=== PATIENT | female | born 1970 | race African-American/Black ===

== ENCOUNTER 2018-09-27 19:59 | Emergency (ER) | payer BC ==
[2018-09-27] MEDS ORDERED: LORazepam TAB(*) 1 MG PO ONE (20:13)
[2018-09-27] MEDS ORDERED: Al Hydrox/Mg Hydrox/Simet LIQ* 30 ML UDC PO ONE (20:14)
[2018-09-27] MEDS ORDERED: Lidocaine 2% VISCOUS* 15 ML UDC PO ONE (20:14)
--- NOTE | 2018-09-27 20:34 | ED ---
HPI Chest Pain - HPI Summary HPI Summary: Pt is a 47 y/o F presenting to the ED brought in by EMS for chest pain first onset around 1700, described as squeezing, pressure, and sometimes sharp. The severity of the pain waxes and wanes, and she reports associated nausea and heart palpitations. She denies dizziness, lightheadedness, diaphoresis, and SOB. She is a former smoker who quit smoking about 6 years ago, and is currently not on any medications. She has had a cardiac catheter and an echocardiogram in the past, and both were normal. - History of Current Complaint Chief Complaint: EDChestPainROMI Time Seen by Provider: 09/27/18 20:05 Hx Obtained From: Patient Onset/Duration: Started Hours Ago, Still Present Timing: Constant, Lasting Hours Initial Severity: Moderate Current Severity: Severe Pain Intensity: 8 Pain Scale Used: 0-10 Numeric Chest Pain Location: Diffuse Chest Pain Radiates: No Character: Pressure/Squeezing, Sharp/Stabbing Aggravating Factor(s): Nothing Alleviating Factor(s): Nothing Associated Signs and Symptoms: Positive: Chest Pain, Palpitations. Negative: Dizziness, Shortness of Breath, Lightheadedness, Diaphoresis - Allergy/Home Medications Allergies/Adverse Reactions: Allergies Allergy/AdvReac Type Severity Reaction Status Date / Time No Known Allergies Allergy Verified 09/27/18 20:16 Home Medications: Home Medications NK [No Home Medications Reported] 09/27/18 [History Confirmed 09/27/18] PMH/Surg Hx/FS Hx/Imm Hx Previously Healthy: Yes Endocrine/Hematology History: Denies: Hx Diabetes Cardiovascular History: Denies: Hx Hypertension Infectious Disease History: No Infectious Disease History: Denies: Traveled Outside the [place] in Last 30 Days - Family History Known Family History: Negative: Renal Disease - Social History Alcohol Use: None Hx Substance Use: No Substance Use Type: Reports: None Hx Tobacco Use: Yes Smoking Status (MU): Former Smoker Review of Systems Negative: Skin Diaphoresis Positive: Palpitations, Chest Pain Negative: Shortness Of Breath Neurological: Negative - dizziness, lightheadedness All Other Systems Reviewed And Are Negative: Yes Physical Exam - Summary Physical Exam Summary: Appearance: Well-appearing woman, Well-nourished, lying in bed comfortably Skin: Warm, dry, no obvious rash Eyes: sclera anicteric, no conjunctival pallor ENT: mucous membranes moist, pharynx appears normal Neck: Supple, nontender Respiratory: Clear to auscultation, no signs of respiratory distress Cardiovascular: Normal S1, S2. No murmurs. Normal distal pulses in tibial and radial bilaterally. Abdomen: Soft, nontender, normal active bowel sounds present Musculoskeletal: Normal, Strength/ROM Intact Neurological: A&Ox3, awake and alert, mentation is normal, speech is fluent and appropriate Psychiatric: affect is anxious Triage Information Reviewed: Yes Vital Signs On Initial Exam: Initial Vitals Temp Pulse Resp BP Pulse Ox 99.5 F 83 17 135/81 99 09/27/18 20:07 09/27/18 20:07 09/27/18 20:07 09/27/18 20:07 09/27/18 20:07 Vital Signs Reviewed: Yes Diagnostics - Vital Signs Vital Signs Temp Pulse Resp BP Pulse Ox 09/27/18 20:07 99.5 F 83 17 135/81 99 - Laboratory Result Diagrams: 09/27/18 20:30 09/27/18 20:30 Lab Statement: Any lab studies that have been ordered have been reviewed, and results considered in the medical decision making process. - EKG 2013 Cardiac Rate: NL - 75bpm EKG Rhythm: Sinus Rhythm ST Segment: Normal Ectopy: None Summary of EKG Findings: EKG at 2013 shows NSR at 75bpm with no STEMI. Chest Pain Course/Dx - Course Course Of Treatment: Pt is a 47 y/o F presenting to the ED brought in by EMS for chest pain first onset around 1700, described as squeezing, pressure, and sometimes sharp. The severity of the pain waxes and wanes, and she reports associated nausea and heart palpitations. She denies dizziness, lightheadedness , diaphoresis, and SOB. In the ED course, pt was given a GI cocktail in the ED consisting of Maalox 30ml, 15ml Lidocaine, and Lorazepam 1mg. EKG at 2013 shows NSR at 75bpm with no STEMI. Pts hematology shows Hgb of 7.5, Hct of 25, MCV of 57, MCH of 17, MCHC of 20, and RDW of 22. Both of the pt's two troponin results were negative at 0.00. The pt is feeling better as of 2304 and will be sent home with a dx of chest pain and anemia. She is stable and agreeable with this plan. - Diagnoses Provider Diagnoses: Chest pain, Anemia Discharge - Sign-Out/Discharge Documenting (check all that apply): Patient Departure Patient Received Moderate/Deep Sedation with Procedure: No - Discharge Plan Condition: Improved Disposition: HOME Patient Education Materials: Chest Pain (ED), Iron Deficiency Anemia (ED) Referrals: Parth Gallegos MD [Medical Doctor] - Additional Instructions: Your workup here tonight did not show any signs of a heart problem, though you do have fairly significant anemia. Call Dr. Gallegos's office on Sunday to make an appt so you can get established with a local blood doctor. It would be helpful as well if you could contact your doctor in [place] to have some records sent out to Dr. Gallegos's office. - Billing Disposition and Condition Condition: IMPROVED Disposition: Home - Attestation Statements Document Initiated by Luz Maria: Yes Documenting Scribe: Jerica Miramontes Provider For Whom Luz Maria is Documenting (Include Credential): Sánchez Castillo MD. Scribe Attestation: Jerica Brand, selinaed for Sánchez Castillo MD. on 10/01/18 at 2024. Scribe Documentation Reviewed: Yes Provider Attestation: The documentation as recorded by the Jerica awan accurately reflects the service I personally performed and the decisions made by me, Sánchez Castillo MD. Status of Scribe Document: Viewed
[2018-09-27 20:49] LABS: INR 0.98 (0.82-1.09)
[2018-09-27 20:50] LABS: Hematocrit 25 % (35-47); Hemoglobin 7.5 g/dL (12.0-16.0); Mean Corpuscular HGB Conc 30 g/dL (31-36); Mean Corpuscular Hemoglobin 17 pg (27-31); Mean Corpuscular Volume 57 fL (80-97); Mean Platelet Volume 9.1 fL (7.4-10.4); Platelet Count 207 10^3/uL (150-450); Red Blood Count 4.47 10^6 /uL (3.70-4.87); Red Cell Distribution Width 22 % (10.5-15); White Blood Count 6.9 10^3/uL (3.5-10.8)
[2018-09-27 21:06] LABS: Albumin 3.8 g/dL (3.2-5.2); Albumin/Globulin Ratio 1.3 (1-3); BUN/Creatinine Ratio 15.5 (8-20); Calcium 8.9 mg/dL (8.6-10.3); EGFR African American 106.3 (>60); EGFR Non-African American 87.9 (>60); Potassium 3.9 mmol/L (3.5-5.0); Total Bilirubin 0.3 mg/dL (0.2-1.0); Total Protein 6.8 g/dL (6.4-8.9)
[2018-09-27 21:18] LABS: ABS Basophils 0.1 10^3/ul (0-0.2); ABS Eosinophils 0.1 10^3/ul (0-0.6); ABS Lymphocytes 1.9 10^3/ul (1.0-4.8); ABS Monocytes 0.7 10^3/ul (0-0.8); Lymphocyte % 27.9 %; Nucleated Red Blood Cells % 0.1
[2018-09-27 21:19] LABS: Microcytosis 2+
[2018-09-27 23:34] VITALS: BP 123/74
== END 2018-09-27 23:32 | disposition home or self-care (01) ==
LOC: ED 19:59
DX: R07.9 Chest pain, unspecified (principal); R00.2 Palpitations; Z87.891 Personal history of nicotine dependence; D64.9 Anemia, unspecified
CPT/HCPCS: 36415; 80053; 84484; 85025; 85060; 85610; 93005; 99283; A9270-GY

== ENCOUNTER 2018-11-07 10:54 | Emergency (ER) | payer BC ==
[2018-11-07] MEDS ORDERED: Aspirin 81 mg CHEW TAB* 81 MG TAB.CHEW PO ONE (11:15)
--- NOTE | 2018-11-07 11:31 | ED ---
HPI Chest Pain - HPI Summary HPI Summary: The patient is a 47 y/o F presenting to [facility] with a chief complaint of intermittent episodes of mid-sternal CP that radiates to the LUE over the last week and a half. Currently, the pain is rated 3/10 in severity. She reports that the dull and aching pain is not associated with exertion. She additionally c/o nausea without vomiting. She denies fever, cough, SOB, palpitations, dizziness, diarrhea, and constipation. She notes that she's had similar symptoms before, and has dx of costochondritis. No hx of DM, HTN, or HLD, but has FHx of DM, HTN, and HLD. No surgical hx. Nonsmoker, no EtOH, no substance use. - History of Current Complaint Chief Complaint: EDChestPainROMI Time Seen by Provider: 11/07/18 11:13 Hx Obtained From: Patient Onset/Duration: Started Days Ago - a week and a half, Still Present Timing: Intermittent, Lasting Days Initial Severity: Moderate Current Severity: Mild Pain Intensity: 3 Pain Scale Used: 0-10 Numeric Chest Pain Location: Mid Sternal Chest Pain Radiates: Yes Chest Pain Radiates To:: Arm - left Character: Dull/Aching Aggravating Factor(s): Nothing - exertion does not worsen the pain Alleviating Factor(s): Nothing Associated Signs and Symptoms: Positive: Chest Pain, Nausea, Other: - NEGATIVE: diarrhea, constipation. Negative: Dizziness, Shortness of Breath, Fever, Palpitations, Cough, Vomiting - Allergy/Home Medications Allergies/Adverse Reactions: Allergies Allergy/AdvReac Type Severity Reaction Status Date / Time No Known Allergies Allergy Verified 11/07/18 11:05 PMH/Surg Hx/FS Hx/Imm Hx Endocrine/Hematology History: Denies: Hx Diabetes Cardiovascular History: Denies: Hx Hypercholesterolemia, Hx Hypertension - Surgical History Surgical History: None Surgery Procedure, Year, and Place: none Infectious Disease History: No Infectious Disease History: Denies: Traveled Outside the [place] in Last 30 Days - Family History Known Family History: Positive: Hypertension, Diabetes, Other - dyslipidemia Negative: Renal Disease - Social History Alcohol Use: None Hx Substance Use: No Substance Use Type: Reports: None Hx Tobacco Use: Yes Smoking Status (MU): Former Smoker Do You Chew or Dip Tobacco: No Have You Chewed or Dipped Tobacco in the LAST YEAR: No Have You Smoked in the Last Year: No Review of Systems Negative: Fever Positive: Chest Pain - mid-sternal, radiating to left arm. Negative: Palpitations Negative: Shortness Of Breath, Cough Positive: Nausea, Other - NEGATIVE: constipation. Negative: Vomiting, Diarrhea Neurological: Other - NEGATIVE: dizziness All Other Systems Reviewed And Are Negative: Yes Physical Exam - Summary Physical Exam Summary: VITAL SIGNS: Reviewed. GENERAL: Patient is a well-developed and nourished female who is lying comfortable in the stretcher. Patient is not in any acute respiratory distress. HEAD AND FACE: No signs of trauma. No ecchymosis, hematomas or skull depressions. No sinus tenderness. EYES: PERRLA, EOMI x 2, No injected conjunctiva, no nystagmus. EARS: Hearing grossly intact. Ear canals and tympanic membranes are within normal limits. MOUTH: Oropharynx within normal limits. NECK: Supple, trachea is midline, no adenopathy, no JVD, no carotid bruit, no c- spine tenderness, neck with full ROM. CHEST: Symmetric. Reproducible chest pain on the left side. LUNGS: Clear to auscultation bilaterally. No wheezing or crackles. CVS: Regular rate and rhythm, S1 and S2 present, no murmurs or gallops appreciated. ABDOMEN: Soft, non-tender. No signs of distention. No rebound, no guarding, and no masses palpated. Bowel sounds are normal. EXTREMITIES: FROM in all major joints, no edema, no cyanosis or clubbing. NEURO: Alert and oriented x 3. No acute neurological deficits. Speech is normal and follows commands. SKIN: Dry and warm. Triage Information Reviewed: Yes Vital Signs On Initial Exam: Initial Vitals Temp Pulse Resp BP Pulse Ox 98.4 F 68 18 147/75 100 11/07/18 11:03 11/07/18 11:03 11/07/18 11:03 11/07/18 11:03 11/07/18 11:03 Vital Signs Reviewed: Yes Diagnostics - Vital Signs Vital Signs Temp Pulse Resp BP Pulse Ox 11/07/18 11:03 98.4 F 68 18 147/75 100 - Laboratory Result Diagrams: 11/07/18 11:45 11/07/18 11:45 Lab Statement: Any lab studies that have been ordered have been reviewed, and results considered in the medical decision making process. - Radiology CXR Radiology Interpretation Completed By: Radiologist Summary of Radiographic Findings: The cardiac silhouette is at the upper limits of normal in size for portable technique. No active cardiopulmonary disease. ED physician has reviewed this report. - EKG 1058 Cardiac Rate: NL - 68 BPM EKG Rhythm: Sinus Rhythm EKG Comparison: No Significant Change - Similar to EKG taken on 09/27/2018. Summary of EKG Findings: Nml axis. No ST elevations. Re-Evaluation - Re-Evaluation First Eval Re-Evaluation Time: 13:09 Comment: I disucssed results thus far with the patient. Second Eval Re-Evaluation Time: 13:48 Comment: I discussed further findings with the patient. Third Eval Re-Evaluation Time: 15:33 Change: Improved Comment: I discussed results and discharge home with the patient. Chest Pain Course/Dx - Course Assessment/Plan: The patient is a 47 y/o F presenting to [facility] with a chief complaint of intermittent episodes of mid-sternal CP that radiates to the LUE over the last week and a half. Currently, the pain is rated 3/10 in severity. She reports that the dull and aching pain is not associated with exertion. She additionally c/o nausea without vomiting. She denies fever, cough, SOB, palpitations, dizziness, diarrhea, and constipation. She notes that she's had similar symptoms before, and has dx of costochondritis. No hx of DM, HTN, or HLD , but has FHx of DM, HTN, and HLD. No surgical hx. Nonsmoker, no EtOH, no substance use. No past medical history. EKG is a normal sinus rhythm at [address] elevations with normal axis. EKG is similar to previous EKG done on 09/27/18. Chest X-ray Impression: The cardiac silhouette is at the upper limits of normal in size for portable technique. Blood work without any significant abnormalities except for hemoglobin of 7.9 and hematocrit of 27. The patient is at her baseline since the patient has a history of chronic iron deficiency anemia. Two troponins four hours apart are 0.00. The heart to score is equal to 1, therefore, there is no suspicion for an acute coronary syndrome. The patient is not hypoxic or tachycardic, therefore, there is no suspicion for PE. I discussed all the findings and test results with the patient. Patient was instructed to return to the emergency room immediately if any of the symptoms return or worsen. Plan of care was discussed with the patient, and she understands and agrees. All questions were answered at patient satisfaction. There were no further complaints or concerns. Lung exam before discharge: CTA B/ L. Good air exchange. No wheezing or crackles heard. CVS: S1 and S2 present. No murmurs appreciated. Patient is alert and oriented x 3. Patient is hemodynamically stable. Patient will be discharged home with follow up PCP in the next 2-3 days. - Diagnoses Provider Diagnoses: Atypical chest pain Discharge - Sign-Out/Discharge Documenting (check all that apply): Patient Departure - Patient will be discharged home. Patient Received Moderate/Deep Sedation with Procedure: No - Discharge Plan Condition: Stable Disposition: HOME Patient Education Materials: Chest Pain (DC) Referrals: [facility] [place] PHYSICIAN REFERRAL [Outside] - 3 Days Additional Instructions: Follow up with your primary care provider in 2-3 days. RETURN TO THE EMERGENCY DEPARTMENT FOR ANY NEW OR WORSENING SYMPTOMS. - Billing Disposition and Condition Condition: STABLE Disposition: Home - Attestation Statements Document Initiated by Luz Maria: Yes Documenting Scribe: Filomena Hancock Provider For Whom Luz Maria is Documenting (Include Credential): Dr. Tang Ramesh MD Scribe Attestation: Filomena Brand scribed for Dr. Tang Ramesh MD on 11/07/18 at 1915. Scribe Documentation Reviewed: Yes Provider Attestation: The documentation as recorded by the Filomena awan accurately reflects the service I personally performed and the decisions made by me, Dr. Tang Ramesh MD Status of Scribe Document: Ready
[2018-11-07 11:55] LABS: ABS Eosinophils 0.1 10^3/ul (0-0.6); ABS Lymphocytes 1.4 10^3/ul (1.0-4.8); ABS Monocytes 0.5 10^3/ul (0-0.8); ABS Neutrophils 3.6 10^3/ul (1.5-7.7); Eosinophil % 1.2 %; Hematocrit 27 % (35-47); Hemoglobin 7.9 g/dL (12.0-16.0); Lymphocyte % 25.5 %; Mean Corpuscular HGB Conc 30 g/dL (31-36); Mean Corpuscular Hemoglobin 17 pg (27-31); Mean Corpuscular Volume 57 fL (80-97); Mean Platelet Volume 8.4 fL (7.4-10.4); Platelet Count 202 10^3/uL (150-450); Red Blood Count 4.66 10^6 /uL (3.70-4.87); Red Cell Distribution Width 22 % (10-15); White Blood Count 5.6 10^3/uL (3.5-10.8)
[2018-11-07 12:09] LABS: Albumin 3.7 g/dL (3.2-5.2); Albumin/Globulin Ratio 1.2 (1-3); BUN/Creatinine Ratio 15.3 (8-20); Calcium 8.9 mg/dL (8.6-10.3); EGFR African American 104.6 (>60); EGFR Non-African American 86.5 (>60); Globulin 3.2 g/dL (2-4); Potassium 3.9 mmol/L (3.5-5.0); Total Bilirubin 0.5 mg/dL (0.2-1.0); Total Protein 6.9 g/dL (6.4-8.9)
[2018-11-07 12:36] LABS: TSH (Thyroid Stimulating Horm) 2.27 mcIU/mL (0.34-5.60)
[2018-11-07 16:07] VITALS: BP 137/88
== END 2018-11-07 16:06 | disposition home or self-care (01) ==
LOC: ED 10:54
DX: R07.89 Other chest pain (principal); R11.0 Nausea; D50.9 Iron deficiency anemia, unspecified; Z87.891 Personal history of nicotine dependence
CPT/HCPCS: 36415; 71045; 80053; 82550; 82553; 83605; 83880; 84443; 84484; 85025; 85610; 85730; 93005; 99283; A9270-GY

== ENCOUNTER 2019-01-23 08:55 | Emergency (ER) | payer SELFPAY ==
--- NOTE | 2019-01-23 09:26 | ED ---
HPI Chest Pain - HPI Summary HPI Summary: Patient is a 48-year-old female who presents emergency department for left leg pain times one week. Patient denies any falls or injuries. Patient also notes she's been having ongoing palpitations as well as some chest pressure today. Patient was concerned for possible DVT. Patient has been seen in the ER if he times over the last few months for similar complaints of chest pain and palpitations. She notes she has new to the area and does not have a family doctor yet. Patient also has a history of iron deficiency anemia and was referred to hematology at her last visit that she has not followed up or made an appointment. Otherwise hx of obesity, denies HTN, HLD, or smoking. Notes strong family hx of CAD. Pt .reportedly has had a normal stress test and cath in the past. Denies drug or ETOH use. Patient otherwise denies fever, chills, cough, shortness of breath. Symptoms are moderate in severity. No current modifying factors. - History of Current Complaint Chief Complaint: EDChestPainROMI Time Seen by Provider: 01/23/19 09:23 Hx Obtained From: Patient - Allergy/Home Medications Allergies/Adverse Reactions: Allergies Allergy/AdvReac Type Severity Reaction Status Date / Time No Known Allergies Allergy Verified 01/23/19 09:05 PMH/Surg Hx/FS Hx/Imm Hx Previously Healthy: Yes Endocrine/Hematology History: Denies: Hx Diabetes Cardiovascular History: Denies: Hx Hypercholesterolemia, Hx Hypertension - Surgical History Surgery Procedure, Year, and Place: none Infectious Disease History: No Infectious Disease History: Denies: Traveled Outside the [place] in Last 30 Days - Family History Known Family History: Positive: Hypertension, Diabetes, Other - dyslipidemia Negative: Renal Disease - Social History Occupation: Unemployed Lives: With Family Alcohol Use: None Hx Substance Use: No Substance Use Type: Reports: None Hx Tobacco Use: Yes Smoking Status (MU): Former Smoker Have You Smoked in the Last Year: No Review of Systems Constitutional: Negative Negative: Fever, Chills Positive: Palpitations, Chest Pain Respiratory: Negative Negative: Shortness Of Breath Gastrointestinal: Negative Positive: Other - left lower leg pain. Skin: Negative Neurological: Negative Negative: Weakness, Paresthesia, Numbness All Other Systems Reviewed And Are Negative: Yes Physical Exam Triage Information Reviewed: Yes Vital Signs On Initial Exam: Initial Vitals Pulse Resp Pulse Ox 67 18 100 01/23/19 09:12 01/23/19 09:12 01/23/19 09:12 Vital Signs Reviewed: Yes Appearance: Positive: Well-Appearing - Pt. sitting up in bed in NAD. Skin: Positive: Warm, Dry Head/Face: Positive: Normal Head/Face Inspection Eyes: Positive: Normal, EOMI Neck: Positive: Supple Respiratory/Lung Sounds: Positive: Clear to Auscultation, Breath Sounds Present. Negative: Rales, Rhonchi, Wheezes Cardiovascular: Positive: Normal, RRR Abdomen Description: Positive: Nontender, Soft Musculoskeletal: Positive: Other - Pain to palpation of left calf. Good pedal pulse. Neurological: Positive: Normal, CN Intact II-III Psychiatric: Positive: Affect/Mood Appropriate Diagnostics - Vital Signs Vital Signs Pulse Resp Pulse Ox 01/23/19 09:12 67 18 100 - Laboratory Result Diagrams: 01/23/19 09:21 01/23/19 09:21 Lab Statement: Any lab studies that have been ordered have been reviewed, and results considered in the medical decision making process. Chest Pain Course/Dx - Course Course Of Treatment: Pt. presenting with complaints of CP, palpitations and leg pain. She is afebrile with stable VS. ECG done at 0900 shows a sinus rhythm of 70bpm, normal axis, no ST elevatio nor depression, similar to prior tracing. H and H 7.0 and 24. Mag 1.8. Negative trop x 2. US negative for DVT. CXR negative for acute findings per radiology. Results discussed. Discussed H and H with pt. She denies sxs of dizziness/lightheadedness, exertional CP, or SOB. HEART score is 2 which is low risk. Strongly advised pt. she needs to f.u with hematology for further evaluation and tx of anemia. Will also have pt. f.u with the [facility]. To return to er if sxs change or worsen. Pt. understands and agrees with plan. - Chest Pain Differential Diagnosis/HQI/PQRI: Acute UT, ACS, Chest Wall, Lower Respiratory Infection - Diagnoses Provider Diagnoses: Palpitations, Anemia Discharge ED - Sign-Out/Discharge Documenting (check all that apply): Patient Departure Patient Received Moderate/Deep Sedation with Procedure: No - Discharge Plan Condition: Good Disposition: HOME Patient Education Materials: Chest Pain (ED), Anemia (ED) Referrals: [facility] [Outside] Kelly,Marcia, MD [Medical Doctor] - Additional Instructions: Call the hematology office today to schedule a close follow up appointment Also schedule a follow up appointment with the [facility] for further evaluation of chest pain Return to ER if symptoms change or worsen - Billing Disposition and Condition Condition: GOOD Disposition: Home
[2019-01-23 09:38] LABS: ABS Basophils 0.1 10^3/ul (0-0.2); ABS Eosinophils 0.1 10^3/ul (0-0.6); ABS Lymphocytes 1.4 10^3/ul (1.0-4.8); ABS Monocytes 0.5 10^3/ul (0-0.8); ABS Neutrophils 3.6 10^3/ul (1.5-7.7); Hematocrit 24 % (35-47); Lymphocyte % 25.3 %; Mean Corpuscular HGB Conc 29 g/dL (31-36); Mean Corpuscular Hemoglobin 16 pg (27-31); Mean Corpuscular Volume 56 fL (80-97); Mean Platelet Volume 8.4 fL (7.4-10.4); Nucleated Red Blood Cells % 0.1; Platelet Count 245 10^3/uL (150-450); Red Blood Count 4.31 10^6 /uL (3.70-4.87); Red Cell Distribution Width 21 % (10-15); White Blood Count 5.7 10^3/uL (3.5-10.8)
[2019-01-23 10:08] LABS: Activated Partial Thrombo Time 31.7 seconds (26.0-38.0); INR 1.03 (0.82-1.09)
[2019-01-23 11:01] LABS: Calcium 9.3 mg/dL (8.6-10.3); Total Bilirubin 0.4 mg/dL (0.2-1.0)
[2019-01-23 11:07] LABS: Albumin/Globulin Ratio 1.3 (1-3); BUN/Creatinine Ratio 13.3 (8-20); EGFR African American 99.4 (>60); EGFR Non-African American 82.1 (>60)
[2019-01-23 11:39] LABS: Magnesium 1.8 mg/dL (1.9-2.7)
[2019-01-23 12:03] LABS: TSH (Thyroid Stimulating Horm) 4.01 mcIU/mL (0.34-5.60)
[2019-01-23 12:22] VITALS: BP 134/86
== END 2019-01-23 12:20 | disposition home or self-care (01) ==
LOC: ED 08:55
DX: R00.2 Palpitations (principal); D64.9 Anemia, unspecified; Z87.891 Personal history of nicotine dependence
CPT/HCPCS: 36415; 71045; 80053; 83735; 84443; 84484; 85025; 85610; 85730; 93005; 99284

== ENCOUNTER 2020-08-11 15:18 | Observation (INO) ==
[2020-08-11] MEDS ORDERED: NS 0.9% 1000 ml BAG 1,000 ML IV ONE (15:38)
[2020-08-11] MEDS ORDERED: Ondansetron 4 mg VIAL 2 MG/ML 2 ml VIAL IV ONE (15:39)
[2020-08-11] MEDS ORDERED: Morphine 4 MG/ML VIAL (1 ml) IV ONE (15:39)
[2020-08-11 16:15] LABS: Troponin I 0.01 ng/mL (<0.03)
[2020-08-11 16:17] LABS: Activated Partial Thrombo Time 27.3 seconds (26.0-38.0); INR 1.1 (0.82-1.09)
[2020-08-11 16:26] LABS: ABS Eosinophils 0.1 10^3/ul (0-0.6); ABS Lymphocytes 1.2 10^3/ul (1.0-4.8); ABS Neutrophils 3.8 10^3/ul (1.5-7.7); Eosinophil % 1.6 %; Hematocrit 33 % (35-47); Hemoglobin 10.1 g/dL (12.0-16.0); Lymphocyte % 19.7 %; Mean Corpuscular HGB Conc 31 g/dL (31-36); Mean Corpuscular Hemoglobin 21 pg (27-31); Mean Corpuscular Volume 69 fL (80-97); Mean Platelet Volume 9.3 fL (7.4-10.4); Nucleated Red Blood Cells % 0.1; Platelet Count 174 10^3/uL (150-450); Red Blood Count 4.76 10^6 /uL (3.70-4.87); White Blood Count 6.1 10^3/uL (3.5-10.8)
[2020-08-11 16:47] LABS: BUN/Creatinine Ratio 11.7 (8-20); Potassium 3.7 mmol/L (3.5-5.0)
[2020-08-11 16:48] LABS: Albumin 3.8 g/dL (3.2-5.2); Albumin/Globulin Ratio 1.2 (1-3); Calcium 8.7 mg/dL (8.6-10.3); EGFR Non-African American 79.3 (>60); Globulin 3.1 g/dL (2-4); Total Bilirubin 0.3 mg/dL (0.2-1.0); Total Protein 6.9 g/dL (6.4-8.9)
[2020-08-11 16:58] LABS: Red Cell Distribution Width 30 % (10-15)
[2020-08-11] MEDS: Iohexol 350 (CONTRAST) 500 ML MDV IV ONE ×2 (17:11→18:05)
[2020-08-11 17:35] LABS: Urine Appearance Turbid; Urine Bilirubin Negative (Negative); Urine Blood 2+ (Negative); Urine Color Amber; Urine Glucose Negative (Negative); Urine Ketones Negative (Negative); Urine Nitrite Positive (Negative); Urine Protein 2+(100 mg/dL) (Negative); Urine Urobilinogen Negative (Negative)
[2020-08-11 17:50] LABS: Urine Bacteria 2+ (Absent); Urine Red Blood Cell 3+(>10/hpf) (Absent); Urine White Blood Cell Trace(0-5/hpf) (Absent)
[2020-08-11] MEDS ORDERED: cefTRIAXone 1 gm/50 mL NS BAG 1 GM/50 ML BAG IV ONE (18:52)
[2020-08-11] MEDS ORDERED: Al Hydrox/Mg Hydrox/Simet LIQ 30 ML UDC PO PRN (20:25)
[2020-08-11] MEDS ORDERED: Ondansetron 4 mg VIAL 2 MG/ML 2 ml VIAL IV PRN (20:39)
[2020-08-11] MEDS ORDERED: Enoxaparin 40 MG/0.4 ML SYR SUBCUT SCH (21:00)
[2020-08-12] MEDS ORDERED: NS 0.9% 500 ml BAG 500 ML IV ONE (00:10)
[2020-08-12 06:14] LABS: ABS Eosinophils 0.1 10^3/ul (0-0.6); ABS Lymphocytes 1.5 10^3/ul (1.0-4.8); ABS Monocytes 0.6 10^3/ul (0-0.8); ABS Neutrophils 2.7 10^3/ul (1.5-7.7); Eosinophil % 1.5 %; Hematocrit 31 % (35-47); Hemoglobin 9.9 g/dL (12.0-16.0); Lymphocyte % 31.1 %; Mean Corpuscular HGB Conc 32 g/dL (31-36); Mean Corpuscular Hemoglobin 22 pg (27-31); Mean Corpuscular Volume 68 fL (80-97); Mean Platelet Volume 9.1 fL (7.4-10.4); Nucleated Red Blood Cells % 0.1; Platelet Count 170 10^3/uL (150-450); Red Blood Count 4.58 10^6 /uL (3.70-4.87); Red Cell Distribution Width 30 % (10-15); White Blood Count 4.9 10^3/uL (3.5-10.8)
[2020-08-12 06:44] LABS: % Iron Saturation 6 % (15-55); Iron 25 ug/dL (50-212); Total Iron Binding Capacity 403 mcg/dL (250-450); Transferrin 288 mg/dL (203-362); Unsaturated Iron Binding < 388 ug/dL
[2020-08-12 07:05] LABS: Ferritin 7.5 ng/mL (11-307)
[2020-08-12 13:50] VITALS: BP 139/86
[2020-08-12 14:40] LABS: TSH Ultra Thyroid Stim Horm 4.79 mcIU/mL (0.34-5.60)
[2020-08-12 16:50] LABS: Cholesterol 115 mg/dL; HDL Cholesterol 31.9 mg/dL; LDL Cholesterol 70 mg/dL; Triglycerides 66 mg/dL
[2020-08-12] MEDS ORDERED: cefTRIAXone 1 gm/50 mL NS BAG 1 GM/50 ML BAG IVPB SCH (21:00)
== END 2020-08-12 15:55 | disposition home or self-care (01) ==
LOC: ED 15:18 → MEDTELE 15:18
PROVIDERS: ADMIT Internal Medicine; ATTEND Student in an Organized Health Care Education/Training Program

== ENCOUNTER 2024-04-22 14:47 | Observation (INO) ==
[2024-04-22 15:26] LABS: ABS Basophils 0.1 10^3/uL (0.0-0.1); ABS Eosinophils 0.1 10^3/uL (0.0-0.5); ABS Lymphocytes 2.1 10^3/uL (1.0-4.8); ABS Monocytes 0.8 10^3/uL (0.0-0.9); ABS Neutrophils 4.2 10^3/uL (1.5-7.6); ABS Nucleated RBC 0.02 10^3/ul; Hematocrit 47.6 % (35-45); Hemoglobin 16.2 g/dL (11.5-14.3); Lymphocyte % 29.8 %; Mean Corpuscular Hemoglobin 28.5 pg (27-33); Mean Corpuscular Volume 83.8 fL (80-97); Nucleated Red Blood Cells % 0.3 %/100WBC (0.0-0.8); Platelet Count 250 10^3/uL (150-450); Red Blood Count 5.68 10^6/uL (3.63-4.92); Red Cell Distribution Width 15.6 % (12-17); White Blood Count 7.2 10^3/uL (3.8-11.8)
[2024-04-22 15:45] LABS: Activated Partial Thrombo Time 31.9 seconds (26.0-38.0); INR 1.06 (0.85-1.14)
[2024-04-22 16:05] LABS: Albumin 4.6 g/dL (3.2-5.2); Albumin/Globulin Ratio 1.3 (1-3); Calcium 10.5 mg/dL (8.6-10.3); Creatinine, Serum 1.05 mg/dL (0.51-0.95); Direct Bilirubin 0.1 mg/dL (0.03-0.18); Globulin 3.6 g/dL (2-4); HDL Cholesterol 44.6 mg/dL; Indirect Bilirubin 0.8 mg/dL (0.3-1.0); Potassium 3.5 mmol/L (3.5-5.0); Total Bilirubin 0.9 mg/dL (0.2-1.0); Total Protein 8.2 g/dL (6.4-8.9); eGFR CKD-EPI 63.1 (>60)
[2024-04-22] MEDS ORDERED: Sulfur Hexaflouride MICROSPHR 25 MG VIAL IV PRN (17:28)
[2024-04-22] MEDS: Enoxaparin 40 MG/0.4 ML SYR SUBCUT SCH (18:06)
[2024-04-22] MEDS: Lactated Ringers 1000 ml BAG 1,000 ML IV ONE (18:29)
[2024-04-22 19:45] LABS: Urine Appearance Clear; Urine Bilirubin Negative (Negative); Urine Blood Trace (Negative); Urine Color Yellow; Urine Glucose Negative (Negative); Urine Ketones 1+ (Negative); Urine Nitrite Negative (Negative); Urine Protein 1+ (>=30 mg/dL) (Negative); Urine Specific Gravity >1.050 (1.002-1.030); Urine Urobilinogen Negative (Negative); Urine pH 6.5 (5.0-8.0)
[2024-04-22 20:04] LABS: Urine Squamous Epithelial Cell Present (Absent)
[2024-04-22 20:05] LABS: Urine Bacteria 1+ (Absent); Urine Red Blood Cell Trace(0-2/hpf) (Absent)
[2024-04-22 20:06] LABS: Urine White Blood Cell Trace(0-5/hpf) (Absent)
[2024-04-23 05:30] LABS: Hematocrit 43.1 % (35-45); Hemoglobin 14.6 g/dL (11.5-14.3); Mean Corpuscular Hgb Conc 33.8 g/dL (31-36); Mean Corpuscular Volume 82.9 fL (80-97); Platelet Count 234 10^3/uL (150-450); Red Cell Distribution Width 15.8 % (12-17); White Blood Count 6.6 10^3/uL (3.8-11.8)
[2024-04-23 05:59] LABS: Calcium 9.6 mg/dL (8.6-10.3); Creatinine, Serum 1.1 mg/dL (0.51-0.95); Potassium 3.4 mmol/L (3.5-5.0); eGFR CKD-EPI 59.7 (>60)
[2024-04-23] MEDS: Potassium Chlor 20 meq TAB.ER PO ONE (08:47)
[2024-04-23] MEDS: Lactated Ringers 1000 ml BAG 1,000 ML IV ONE (08:52)
[2024-04-23] MEDS: Dextran 70/Hypromellose Tears Eye Drops 15 ml BTL (for Artificials Tears) BOTH EYES SCH (09:16)
[2024-04-23 18:37] VITALS: BP 149/85
== END 2024-04-23 19:00 | disposition home or self-care (01) ==
LOC: ED 14:47 → EDHOLD 14:47 → SUATTDRO 17:28 → MEDTELE 04-23 10:45
PROVIDERS: ADMIT Internal Medicine; ATTEND Internal Medicine